=== PATIENT | male | born 1970 | race African-American/Black ===

== ENCOUNTER 2021-05-22 01:22 | Day surgery (SDC) | payer OTHER, BC, SELFPAY ==
[2021-05-12 13:52] VITALS: BMI 34.2
[2021-05-22 06:56] VITALS: BMI 34.5
[2021-05-22 06:57] VITALS: BP 129/78; RESP 18; TEMP 36.4; O2SAT 100
[2021-05-22] MEDS: LACTATED RINGERS 1,000 ML 150 ML IV CONT (07:08)
[2021-05-22 07:11] LABS: Glucose Point of Care 91 mg/dl (65-105)
--- NOTE | 2021-05-22 07:49 | P.PNAN_ITS ---
Anes - Initial Pre Proc Eval Procedure: Operation Date: 05/22/21 08:15 Proposed Procedures p Screening Colonoscopy - Nicho Montero MD Date/Time: 05/22/21 07:49 Surgeon: Nicho Montero MD Pre Op Diagnosis: neoplasm screening Patient Data Age: 50 Gender: M Height: 1.8 m Weight: 112.4 kg Last Vital Signs Temp 36.4 C 05/22/21 06:57 Resp 18 05/22/21 06:57 BP 129/78 05/22/21 06:57 Pulse Ox 100 05/22/21 06:57 Allergies Allergy/AdvReac Type Severity Reaction Status Date / Time No Known Allergies Allergy Verified 05/22/21 06:54 Home Medications Medication Instructions Recorded Confirmed Type amlodipine 10 mg PO DAILY 05/12/21 05/22/21 History losartan-hydrochlorothiazide 1 tablet PO DAILY 05/12/21 05/12/21 History metformin 500 mg PO BID 05/12/21 05/12/21 History Laboratory Tests 05/22/21 07:08 POC Capillary Glucose 91 mg/dl mg/dl (65-105) Patient hx anesthesia problems: none Family hx anesthesia problems: none Results Review: All pre-operative results and documents have been reviewed as part of the pre-operative evaluation. [facility] Past Medical History Medical History Arthritis Diabetes Hx of migraines Hypertension SOHAIL (obstructive sleep apnea) Social History Social History Smoking status: Never smoker Alcohol intake: never Substance use: never Substance use type: does not use Living arrangements: with family Spiritual care concerns: No Anes - Eval Final PreProcedure Day of Procedure 05/22/21 07:49 Patient weight: obese Heart: regular rate and rhythm Lungs: clear to auscultation Airway: Mallampati scale class II Neurological: alert and oriented Last oral intake: >/= 8 hours ASA classification: III Emergent: no Anesthetic plan: proceed Anesthesia type and monitoring: general and standard monitoring Results Review: All pre-operative results and documents have been reviewed as part of the pre-operative evaluation. Informed Consent: The patient's anesthetic plan and its attendant risks and benefits were discussed with the patient/family/POA. Questions were solicited and answers provided to the satisfaction of the patient/family/POA.
--- NOTE | 2021-05-22 08:01 | PM.HPGS ---
History of Present Illness History of Present Illness Consent: Risks, benefits, and alternatives have been discussed and questions answered. Patient agrees to proceed with procedure. Chief complaint: neoplasm screening Narrative: Enrrique Begum is a 50 year old male here for first screening colonoscopy Review of Systems Constitutional: Constitutional: Denies headache(s) and Denies weakness Eyes: Eyes: Denies blurry vision ENT: Reports Normal hearing present, Denies headache(s) and Denies neck pain Cardiovascular: Cardiovascular: Denies chest pain and Denies dyspnea Respiratory: Respiratory: Denies dyspnea Gastrointestinal: Gastrointestinal: Reports no additional gastrointestinal complaints Genitourinary: Genitourinary: Denies dysuria Musculoskeletal: Musculoskeletal: Denies neck pain Integumentary/Breasts: Skin/Breast: Denies dry skin Neurologic: Reports Normal hearing present, Denies headache(s) and Denies weakness Psychiatric: Psychiatric: Denies anxiety Endocrine: Endocrine: Denies change in body appearance Hematologic/Lymphatic: Hematologic/Lymphatic: Denies easy bleeding Allergic/Immunologic: Allergic/Immunologic: Denies urticaria PMF Past Medical History Medical History (Updated 05/22/21 @ 08:02 by Nicho Montero MD) Arthritis Colon cancer screening Diabetes Hx of migraines Hypertension SOHAIL (obstructive sleep apnea) Social History Social History Smoking status: Never smoker Alcohol intake: never Substance use: never Substance use type: does not use Living arrangements: with family Spiritual care concerns: No Meds Home Medications and Allergies Home Medications Medication Instructions Recorded Confirmed Type amlodipine 10 mg PO DAILY 05/12/21 05/22/21 History losartan-hydrochlorothiazide 1 tablet PO DAILY 05/12/21 05/12/21 History metformin 500 mg PO BID 05/12/21 05/12/21 History Allergies Allergy/AdvReac Type Severity Reaction Status Date / Time No Known Allergies Allergy Verified 05/22/21 06:54 Vital Signs Vital Signs - 24 hr 05/22/21 06:57 Temperature 97.6 F Respiratory Rate 18 Blood Pressure 129/78 Pulse Oximetry 100 Exam Const: General: comfortable and no acute distress HENMT: General nose exam: Normal nares present Eyes: General: appearance normal, both eyes and all related structures Neck: Neck: no JVD Resp: Auscultation: clear to auscultation bilaterally Cardio: Rate: regular rate Rhythm: regular rhythm GI: Inspection: non-distended GI Palp: Yes Soft to palpation Skin: General skin exam: normal color Neuro: General: gait normal Speech: normal speech Extrem: General: normal to inspection Psych: Mental Status: mental status grossly normal Assessment and Plan Assessment and plan (1) Colon cancer screening: Code(s): Z12.11 - Encounter for screening for malignant neoplasm of colon Status: Acute Assessment and Plan: colonoscopy
[2021-05-22 08:21] VITALS: BP 139/95; PULSE 64; RESP 22; O2SAT 99
[2021-05-22 08:31] VITALS: BP 121/84; PULSE 63; RESP 19; O2SAT 100
[2021-05-22 08:41] VITALS: BP 129/86; PULSE 67; RESP 15; O2SAT 100
== END 2021-05-22 08:55 | disposition home or self-care (01) ==
PROVIDERS: PCP Family Medicine Adolescent Medicine; Visit Provider Internal Medicine Gastroenterology
PROC: 0DJD8ZZ Inspection of Lower Intestinal Tract, Via Natural or Artificial Opening Endoscopic (ICD-10-PCS; CPT 45378; principal; 2021-05-22 08:15)
DX: Z12.11 Encounter for screening for malignant neoplasm of colon (principal); D12.3 Benign neoplasm of transverse colon; K57.30 Diverticulosis of large intestine without perforation or abscess without bleeding; K64.8 Other hemorrhoids; Z79.84 Long term (current) use of oral hypoglycemic drugs; M19.90 Unspecified osteoarthritis, unspecified site; E11.9 Type 2 diabetes mellitus without complications; I10 Essential (primary) hypertension; G47.33 Obstructive sleep apnea (adult) (pediatric); E66.9 Obesity, unspecified; Z68.34 Body mass index [BMI] 34.0-34.9, adult
CPT/HCPCS: 45385; 82948; 88305; J2001; J2704; J7120

== ENCOUNTER → 2021-10-13 15:46 | Outpatient (CLI) | payer OTHER, BC, SELFPAY ==
--- NOTE | ~2021-10-13 | XR_ITS ---
EXAM: XR pelvis 1-2V DATE: 10/13/2021 16:08 HISTORY: M25.551 - Pain in right hip . COMPARISON: None available. FINDINGS: Normal mineralization. No fracture or dislocation. No lytic or blastic lesion. Mild bilate ral hip joint space narrowing. Enthesopathy of the iliac crests and ischial tuberosities. No erosion or periosteal change. Soft tissues within normal limits. IMPRESSION: Mild bilateral hip osteoarthritis. Reviewed, dictated and finalized at location K.
== END ==
PROVIDERS: PCP Family Medicine Adolescent Medicine; Visit Provider Physician Assistant
DX: M16.0 Bilateral primary osteoarthritis of hip (principal)
CPT/HCPCS: 72170

== ENCOUNTER 2021-12-31 14:54 | Outpatient (CLI) | payer OTHER, BC, SELFPAY ==
--- NOTE | 2021-12-31 15:32 | ECG_ITS ---
Measurements Intervals [place] Rate: 72 P: 30 NV: 187 QRS: -1 QRSD: 89 T: 7 QT: 307 QTc: 336 Interpretive Statements SINUS RHYTHM BASELINE ARTIFACT NONSPECIFIC ST-T-WAVE ABNORMALITY NO PREVIOUS ECG AVAILABLE FOR COMPARISON Electronically Signed On 12-31-2021 17:43:41 CDT by Laurita Yuan M.D.
[2021-12-31 16:04] LABS: Anion Gap 11 mmol/L (8-16); Blood Urea Nitrogen 10 mg/dL (9-20); Calcium 9.1 mg/dL (8.4-10.2); Carbon Dioxide 30 mmol/L (22-30); Chloride 99 mmol/L (98-107); Estimated Glomerular Filt Rate > 60; Glucose 141 mg/dL (65-110); Potassium 3.6 mmol/L (3.4-5.0); Sodium 140 mmol/L (137-145)
== END 2021-12-31 14:55 | disposition home or self-care (01) ==
LOC: ANHSURGERY 15:27
PROVIDERS: Anesthesiology; PCP Family Medicine Adolescent Medicine; Visit Provider Surgery
DX: Z01.818 Encounter for other preprocedural examination (principal); E11.9 Type 2 diabetes mellitus without complications; I10 Essential (primary) hypertension
CPT/HCPCS: 36415; 80048; 86850; 86900; 86901; 93005

== ENCOUNTER 2022-01-05 00:05 | Day surgery (SDC) | payer OTHER, BC, SELFPAY ==
[2021-12-31 08:28] VITALS: BMI 33.2
--- NOTE | 2021-12-31 08:34 | PC.NURSE ---
Report to the Outpatient Waiting Room, entrance under the green pavilion located off [facility], at time ___06:00AM____ on date _[birth year] . OR Time: ___07:30AM___. Time changes happen often and if your time is changed the preop area will call you the afternoon before. - You and your visitor will be asked to self-screen and do not enter if you have any COVID symptoms. - Only one visitor and NO children visitors are allowed at this time. - The patient visitor is requested to leave or wait in car when not with patient due to restrictions. - A mask is required within the hospital. Patients may have clear liquids (water, carbonated beverages, clear teas, apple juice) until 3 hours prior to surgery with a maximum of 20 ounces. - No food from midnight until time of surgery - NOTHING TO DRINK 04:30AM Take the following medications with a SIP of water the morning of surgery: AMLODIPINE Medications to discontinue per physician N/A Date to take last dose N/A Please no make-up, nail chadian, hairspray, perfume, deodorant, or body powder the day of surgery. No jewelry (including any body piercings) or valuables the day of surgery, leave them at home. Please take a shower or bath the night before, or the morning of, surgery with an antibacterial soap. Wear comfortable, loose fitting clothing. - Jewelry must be removed prior to entering the operating room. Rings and piercings that are not removed may be cut off. - The hospital will not accept responsibility for valuables. - Please leave all valuables, including medications, at home the day of surgery. If you are going home after surgery, a licensed driver starting gate must drive you home. - NO public transportation without another adult. - We recommend that an adult stay with you for 24 hours following discharge. - We also recommend that you do not drive, make important decision, drink alcoholic beverages, or take any drugs that were not prescribed by your health care provider for at least 24 hours after your discharge time. Follow any additional instructions given to you from your surgeon. If you or anyone in your household have experienced Covid symptoms in the past week, please notify your surgeon or the nurse liaison at the phone number below for possible testing. Telephone instructions given to ___PATIENT___and asked if any additional questions and then verbalized understanding. Patient advised to call surgeon office or pre surgery nurse liaison [phone] if any additional questions.
[2022-01-05] VITALS (8 sets, daily range): BP systolic 104–135; BP diastolic 69–89; PULSE 53–72; RESP 14–18; TEMP 36.1–37.1; O2SAT 95–100
[2022-01-05] MEDS: LACTATED RINGERS 1,000 ML 30 ML IV CONT ×2 (06:25→09:09)
[2022-01-05] MEDS: KETOROLAC 15 MG/ML VIAL (*BKC) IV PUSH (06:31)
[2022-01-05] MEDS: ACETAMINOPHEN 500 MG TABLET 1000 MG PO (06:31)
[2022-01-05 06:33] LABS: Glucose Point of Care 119 mg/dl (65-105)
--- NOTE | 2022-01-05 06:50 | WPDANESEPPF ---
Anes - Initial Pre Proc Eval Procedure: Operation Date: 01/05/22 07:30 Proposed Procedures p Laparoscopic Umbilical Hernia Repair with Mesh, Davinci Assisted - Casey Day DO Date/Time: 01/05/22 06:50 Surgeon: Casey Day DO Pre Op Diagnosis: umbilical hernia Patient Data Age: 51 Gender: M Height: 1.83 m Weight: 112.3 kg Last Vital Signs Temp 36.1 C L 01/05/22 05:57 Pulse 62 01/05/22 05:57 Resp 18 01/05/22 05:57 BP 125/78 01/05/22 05:57 Pulse Ox 99 01/05/22 05:57 O2 Del Method Room Air 01/05/22 05:57 Allergies Allergy/AdvReac Type Severity Reaction Status Date / Time No Known Allergies Allergy Verified 01/05/22 06:12 Home Medications Medication Instructions Recorded Confirmed Type losartan 100 1 tablet PO DAILY 05/12/21 01/05/22 History mg-hydrochlorothiazide 25 mg tablet amlodipine 10 mg tablet 10 mg PO DAILY #90 tabs 12/03/21 01/05/22 Rx metformin 500 mg tablet See Rx Instructions .Route 12/30/21 01/05/22 Rx .COMPLEX #180 tabs Laboratory Tests 01/05/22 06:27 POC Capillary Glucose 119 mg/dl H mg/dl (65-105) Patient hx anesthesia problems: none Family hx anesthesia problems: none Results Review: All pre-operative results and documents have been reviewed as part of the pre-operative evaluation. [facility] Past Medical History Medical History Arthritis Colon cancer screening Diabetes History of positive PPD Hx of migraines Hypertension SOHAIL (obstructive sleep apnea) Family History Family History Father Hypertension Diabetes mellitus Cancer Mother Hypertension Diabetes mellitus Sibling Hypertension Grandparent Cancer Acute myocardial infarction Cerebrovascular accident Grandparent Cancer Social History Social History Smoking status: Never smoker Second hand tobacco smoke exposure: No Alcohol intake: never Substance use: never Substance use type: does not use Living arrangements: with family Gender identity (if verbalized by the patient): Male Sexual Orientation (if Verbalized by the Patient): Straight or Heterosexual Spiritual care concerns: No Agree to blood products: Yes Anes - Eval Final PreProcedure Day of Procedure 01/05/22 06:50 Patient weight: obese Heart: regular rate and rhythm Lungs: clear to auscultation Airway: Mallampati scale class II Neurological: alert and oriented Last oral intake: >/= 8 hours ASA classification: III Emergent: no Anesthetic plan: proceed Anesthesia type and monitoring: general ETT and standard monitoring Results Review: All pre-operative results and documents have been reviewed as part of the pre-operative evaluation. Informed Consent: The patient's anesthetic plan and its attendant risks and benefits were discussed with the patient/family/POA. Questions were solicited and answers provided to the satisfaction of the patient/family/POA.
--- NOTE | 2022-01-05 07:09 | PM.IMHP ---
H&P: HPI History of Present Illness Date/Time: 01/05/22 07:09 Chief Complaint: umbilical hernia Narrative: 51 yo man presents for umbilical hernia repair. He denies any changes since last seen in office. Review of Systems Review of Systems: All systems reviewed & are unremarkable except as noted in HPI and below Constitutional: Constitutional: Denies chills, Denies fever(s), Denies headache(s) and Denies weight loss Eyes: Eyes: Denies change in vision ENT: Denies dizziness, Denies headache(s), Denies neck mass and Denies throat swelling Cardiovascular: Cardiovascular: Denies chest pain, Denies lightheadedness and Denies dyspnea Respiratory: Respiratory: Denies cough, Denies dyspnea and Denies wheezing Gastrointestinal: Gastrointestinal: Denies abdominal pain, Denies change in bowel habits, Denies nausea and Denies vomiting Genitourinary: Genitourinary: Denies hematuria and Denies dysuria Musculoskeletal: Musculoskeletal: Reports as per HPI Integumentary/Breasts: Skin/Breast: Reports as per HPI Neurologic: Denies dizziness and Denies headache(s) Allergic/Immunologic: Allergic/Immunologic: Denies throat swelling and Denies wheezing PMFSH Past Medical History Medical History Arthritis Colon cancer screening Diabetes History of positive PPD Hx of migraines Hypertension SOHAIL (obstructive sleep apnea) Family History Family History Father Hypertension Diabetes mellitus Cancer Mother Hypertension Diabetes mellitus Sibling Hypertension Grandparent Cancer Acute myocardial infarction Cerebrovascular accident Grandparent Cancer Social History Social History Smoking status: Never smoker Second hand tobacco smoke exposure: No Alcohol intake: never Substance use: never Substance use type: does not use Living arrangements: with family Gender identity (if verbalized by the patient): Male Sexual Orientation (if Verbalized by the Patient): Straight or Heterosexual Spiritual care concerns: No Agree to blood products: Yes Meds Home Medications and Allergies Home Medications Medication Instructions Recorded Confirmed Type losartan 100 1 tablet PO DAILY 05/12/21 01/05/22 History mg-hydrochlorothiazide 25 mg tablet amlodipine 10 mg tablet 10 mg PO DAILY #90 tabs 12/03/21 01/05/22 Rx metformin 500 mg tablet See Rx Instructions .Route 12/30/21 01/05/22 Rx .COMPLEX #180 tabs Allergies Allergy/AdvReac Type Severity Reaction Status Date / Time No Known Allergies Allergy Verified 01/05/22 06:12 Vital Signs Vital Signs - 24 hr 01/05/22 05:57 Temperature 36.1 C L Pulse Rate 62 Respiratory Rate 18 Blood Pressure 125/78 Pulse Oximetry 99 Oxygen Delivery Room Air Exam Const: General: no acute distress and alert Orientation/consciousness: patient oriented x3 HENMT: Head: normocephalic and atraumatic Ears: hearing grossly normal bilaterally Face/Nose/Sinus: Normal nares present Mouth: Yes Normal oral and palatal mucosa present Eyes: Periorbital: periorbital findings normal Sclera: sclerae normal EOM: EOMs intact bilaterally Neck: Neck: normal visual inspection, no lymphadenopathy and trachea midline Chest: Chest palpation & inspection: normal inspection of the chest Resp: Effort & Inspection: normal respiratory effort Auscultation: clear to auscultation bilaterally Cardio: Jugular venous distension: no JVD Rate: regular rate Rhythm: regular rhythm Heart sounds: S1 normal heart sound present and S2 normal heart sound present Peripheral pulses: Peripheral pulses 2+ throughout GI: Inspection: normal to inspection GI Palp: Yes Soft to palpation, No Tenderness to palpation present (GI), No Guarding due to palpation present (GI), Yes Hernia present (2cm umbilical hernia) and No Rebound te
--- NOTE | 2022-01-05 07:11 | WPDHPUPDATE1 ---
History and Physical Update Update Date/Time: 01/05/22 07:11 History and Physical has been reviewed, including an updated exam of the patient. There are NO changes in the patient's condition. Risks, benefits, and alternatives have been discussed and questions answered. Patient agrees to proceed with procedure.
[2022-01-05] MEDS: ceFAZolin 2 GM/D5W 50 ML 2 GM/50 ML BAG IVPB (07:24)
--- NOTE | 2022-01-05 09:03 | W.PM.PROC2 ---
Procedure Note - Detailed Date of Procedure 01/05/22 Pre-op Diagnosis umbilical hernia Post-op Diagnosis Same Procedure Performed Laparoscopic Umbilical Hernia Repair with Mesh, da Pablo assisted Surgeon Casey Day DO Anesthesia General and Local (Exparel) Indications This is a 51-year-old man who presented with a painful bulge at his umbilicus that he noticed about 2-3 months ago. He was experiencing some tenderness well sitting or standing for long periods of times. He was found to have a small reducible umbilical hernia on exam. Discussions were made with the patient about treatment options and decision was made to proceed with robotic assisted laparoscopic umbilical hernia repair with mesh. Findings Laparoscopic umbilical hernia repair was performed. The patient was found to have a 1 cm umbilical hernia containing some omentum. The hernia was reducible. There was minimal surrounding preperitoneal fat. The hernia sac was excised and discarded. A robotic intraperitoneal onlay mesh technique was then used for repair. The fascia was closed using 0 Stratafix running absorbable suture then an [address] mesh was placed and secured to the abdominal wall using 2 0 V lock running absorbable suture. Description of Procedure Procedure as well as risks, benefits, and alternatives were discussed with the patient. Written consent was obtained and placed in chart prior to procedure. Patient was brought back to surgical suite. He was placed supine on operating table. Time-out was done to confirm patient and procedure. He was then intubated by the anesthesia department. A bump was placed under his left hip, and the bed was flexed slightly to extend the space between his costal margin and iliac crest. His abdomen was prepped and draped in sterile fashion using chlorhexidine prep. A 5 millimeter incision was made in the left upper quadrant, and a 5 millimeter Optiview trocar was advanced through the abdominal layers under direct visualization. Once inside the abdominal cavity, carbon dioxide insufflation was used to create a pneumoperitoneum. His abdomen was inspected. An 8 millimeter incision was made in the left lower quadrant, and an 8 millimeter robotic trocar was placed under direct visualization. Another 8 millimeter incision was made in the left lateral abdomen, and an 8 millimeter robotic trocar was placed under direct visualization. Exparel was infiltrated along the lateral abdominal villarreal to perform a transversus abdominis plane block bilaterally. The 5 millimeter port was removed, the incision was extended to 12 millimeters, and a 12 millimeter air seal port was placed under direct visualization. A Damir-Payne cone was also used to place an 0-Vicryl simple interrupted suture at this trocar site. The robotic arms were brought up to the patient's bedside and secured to the ports. The camera and instruments were inserted, and I then moved over to the robotic console and took control of the camera and instruments. After careful thorough inspection of the abdominal cavity, I began my dissection at the hernia. The hernia sac was excised using scissors with electrocautery and the preperitoneal fat was cleared from around the fascia. I then measured the hernia size. The hernia measured 1 cm. The fascia was closed using an 0-Stratafix running suture in a vertical fashion. An [address] was then placed within the abdominal cavity. This was oriented vertically with the mesh centered on the hernia defect. The mesh was then secured circumferentially to the abdominal wall using 2 0 V lock running absorbable suture. The repair was inspected, and one final inspection was made around the abdominal cavity. The robotic instruments were then removed, and the robotic arms were disengaged from the trocars. The ports were then removed under direct visualization, the camera was removed, and the pneumoperitoneum was released. The
[2022-01-05 09:20] LABS: Glucose Point of Care 140 mg/dl (65-105)
[2022-01-05] MEDS: oxyCODONE HCL (*CRX) 5 MG TAB IR PO (10:14)
== END 2022-01-05 11:37 | disposition home or self-care (01) ==
PROVIDERS: PCP Family Medicine Adolescent Medicine; Visit Provider Surgery
PROC: (CPT 49652; principal; 2022-01-05 07:30)
DX: K42.9 Umbilical hernia without obstruction or gangrene (principal); E11.9 Type 2 diabetes mellitus without complications; I10 Essential (primary) hypertension; G47.33 Obstructive sleep apnea (adult) (pediatric); Z79.84 Long term (current) use of oral hypoglycemic drugs; E66.9 Obesity, unspecified; Z68.33 Body mass index [BMI] 33.0-33.9, adult
CPT/HCPCS: 49652; 36415; 80048; 82948; 86850; 86900; 86901; 93005; A9270; C1781; C9290; J0330; J0690; J1100; J1170; J1885; J2250; J2405; J2704; J2710; J3010; J7030; J7120

== ENCOUNTER 2022-11-25 08:01 | Outpatient (CLI) | payer BC, SELFPAY | END 2022-11-25 08:02 | disposition home or self-care (01) | LOC: ANHAUDASC 08:02 | PROVIDERS: PCP Family Medicine Adolescent Medicine; Visit Provider Family Medicine Adolescent Medicine | DX: H91.93 Unspecified hearing loss, bilateral (principal) | CPT/HCPCS: 92552; 92556; 92567 ==

== ENCOUNTER 2023-09-20 10:47 | Outpatient (CLI) | payer OTHER, BC, SELFPAY ==
--- NOTE | ~2023-09-20 | XR_ITS ---
Right Knee Technique: AP, lateral, and sunrise views were obtained. Clinical History: Osteoarthritis Findings: No fracture or dislocation is seen. Osseous alignment is anatomic. There is minimal patella r and intercondylar notch spurring. Soft tissues are unremarkable. No joint effusion is seen. Impression: Minimal degenerative spurring, as above. Reviewed, dictated and finalized at location . Impression: Minimal degenerative spurring, as above.
== END 2023-09-20 10:48 ==
LOC: MICIMG 10:49
PROVIDERS: PCP Family Medicine Adolescent Medicine; Visit Provider Family Medicine Adolescent Medicine
DX: M17.0 Bilateral primary osteoarthritis of knee (principal); M76.891 Other specified enthesopathies of right lower limb, excluding foot
CPT/HCPCS: 73564

== ENCOUNTER 2024-07-13 00:02 | Day surgery (SDC) | payer OTHER, BC, SELFPAY ==
[2024-07-09 13:51] VITALS: BMI 33.3
--- OUTSIDE RECORDS SUMMARY | 2024-07-13 00:05 | XMS_ITS | Clinical Summary ---
Author Organization [facility] Address [address] [place] [id number] Care Team Providers Care C Winforms Developer Name Role Phone Unavailable Primary Care Provider Unavailabl e Social History Tobacco Use Types Packs/Day Years Used Date Smoking Tobacco: Never Assessed Sex and Gender Information Value Date Recorded Sex Assigned at Not on file Legal Sex Male 8:37 AM [employer] Gender Identity Not on file Sexual Orientation Not on file Plan of Treatment Health Maintenance Due Date Last Done Comments Hepatitis C Virus (HCV) Screening 1970 TdaP Immunization 1970 Hepatitis B Immunization (1 of 3 - 19+ 3-dose series) 1989 Colonoscopy 12/27/2015 Colorectal Cancer Screening 12/27/2015 Cologuard 2020 Immunochemical Fecal Occult Blood 2020 Pneumococcal Immunization (5 0+ years) (1 of 1 - PCV) 2020 Zoster Immunization (1 of 2) 2020 Influenza Immunization (#1) 2023 01/06/2020 SARS-COV-2 Immunization ( - 2023-25 season) 2023 Respiratory Syncytial Virus (RSV) Immunization (Adult) (1 - 1-dose 75+ series) 2045 Meningococcal Immunization (ACWY) Aged Out No longer eligible based on patient's age to complete this topic Pneumococcal Immunization Combined Aged Out No longer eligible based on patient's age to complete this topic Rotavirus Immunization Aged Out No lo nger eligible based on patient's age to complete this topic Insurance [employer] on file
[2024-07-13 12:59] VITALS: BP 132/79; PULSE 56; RESP 20; TEMP 36.4; O2SAT 100; BMI 33.7
[2024-07-13] MEDS: LACTATED RINGERS 1,000 ML 150 ML IV CONT (13:02)
[2024-07-13 13:14] LABS: Glucose Point of Care 105 mg/dl (65-105)
--- NOTE | 2024-07-13 13:15 | P.PNAN_ITS ---
Anes - Initial Pre Proc Eval Procedure: Operation Date: 07/13/24 14:00 Proposed Procedures p Colonoscopy - Nicho Montero MD Date/Time: 07/13/24 13:15 Surgeon: Nicho Montero MD Pre Op Diagnosis: Personal history of colon polyps, unspecified Patient Data Age: 53 Gender: M Height: 1.83 m Weight: 112.8 kg Last Vital Signs Temp 36.4 C 07/13/24 12:59 Pulse 56 L 07/13/24 12:59 Resp 20 07/13/24 12:59 BP 132/79 07/13/24 12:59 Pulse Ox 100 07/13/24 12:59 O2 Del Method Room Air 07/13/24 12:59 Allergies Allergy/AdvReac Type Severity Reaction Status Date / Time No Known Allergies Allergy Verified 07/13/24 12:57 Home Medications ?Medication ?Instructions ?Recorded ?Confirmed ?Type losartan 100 1 tablet PO DAILY #90 tabs 09/22/23 07/13/24 Rx mg-hydrochlorothiazide 25 mg tablet amlodipine 10 mg tablet 10 mg PO DAILY #90 tabs 11/07/23 07/13/24 Rx metformin 500 mg tablet See Rx Instructions .Route 12/05/23 07/13/24 Rx .COMPLEX #180 tabs Laboratory Tests 07/13/24 13:11 POC Capillary Glucose 105 mg/dl (65-105) Patient hx anesthesia problems: none Family hx anesthesia problems: none Results Review: All pre-operative results and documents have been reviewed as part of the pre- operative evaluation. [facility] Past Medical History Medical History Umbilical hernia without mention of obstruction or gangrene History of positive PPD Colon cancer screening Arthritis SOHAIL (obstructive sleep apnea) Hypertension Hx of migraines Diabetes Surgical History Surgical History History of umbilical hernia repair (01/05/22) LAP umbilical hernia repair with mesh, da jake assisted on 01/05/22 Family History Family History Father Hypertension Diabetes mellitus Cancer Mother Hypertension Diabetes mellitus Sibling Hypertension Grandparent Cancer Acute myocardial infarction Cerebrovascular accident Grandparent Cancer Social History Social History Smoking status: Never smoker Second hand tobacco smoke exposure: No Alcohol intake: never Substance use: never Substance use type: does not use Do You Feel Safe in your Home?: Yes Lack of Transportation: No Lack of Food: Never True Current Housing: I Have Housing Concerned About Future Housing: No Difficulty Paying Gas/Electric Bills: No Difficulty Paying for Meds: No Currently Unemployed: No Education: Master's Degree or Higher Difficulty w/ Childcare or Family Care: No Living arrangements: with family Occupation/Education: occupation Gender identity (if verbalized by the patient): Male Sexual Orientation (if Verbalized by the Patient): Straight or Heterosexual Spiritual care concerns: No Agree to blood products: Yes Anes - Eval Final PreProcedure Day of Procedure 07/13/24 13:15 Patient weight: obese Heart: regular rate and rhythm Lungs: clear to auscultation Airway: Mallampati scale class III Neurological: alert and oriented Last oral intake: >/= 8 hours ASA classification: III Emergent: no Anesthetic plan: proceed Anesthesia type and monitoring: general GIVS and standard monitoring Results Review: All pre-operative results and documents have been reviewed as part of the pre- operative evaluation. Informed Consent: The patient's anesthetic plan and its attendant risks and benefits were discussed with the patient/family/POA. Questions were solicited and answers provided to the satisfaction of the patient/family/POA.
--- NOTE | 2024-07-13 13:15 | PM.HPGS ---
History of Present Illness History of Present Illness Consent: Risks, benefits, and alternatives have been discussed and questions answered. Patient agrees to proceed with procedure. Chief complaint: Personal history of colon polyps, unspecified Narrative: Enrrique Begum is a 53 year old male with colon polyp in 2021 Review of Systems Review of Systems: All systems reviewed & are unremarkable except as noted in HPI and below PMFSH Past Medical History Medical History (Updated 07/13/24 @ 13:15 by Nicho Montero MD) Adenomatous colon polyp Umbilical hernia without mention of obstruction or gangrene History of positive PPD Colon cancer screening Arthritis SOHAIL (obstructive sleep apnea) Hypertension Hx of migraines Diabetes Surgical History Surgical History History of umbilical hernia repair (01/05/22) LAP umbilical hernia repair with mesh, da jake assisted on 01/05/22 Family History Family History Father Hypertension Diabetes mellitus Cancer Mother Hypertension Diabetes mellitus Sibling Hypertension Grandparent Cancer Acute myocardial infarction Cerebrovascular accident Grandparent Cancer Social History Social History Smoking status: Never smoker Second hand tobacco smoke exposure: No Alcohol intake: never Substance use: never Substance use type: does not use Do You Feel Safe in your Home?: Yes Lack of Transportation: No Lack of Food: Never True Current Housing: I Have Housing Concerned About Future Housing: No Difficulty Paying Gas/Electric Bills: No Difficulty Paying for Meds: No Currently Unemployed: No Education: Master's Degree or Higher Difficulty w/ Childcare or Family Care: No Living arrangements: with family Occupation/Education: occupation Gender identity (if verbalized by the patient): Male Sexual Orientation (if Verbalized by the Patient): Straight or Heterosexual Spiritual care concerns: No Agree to blood products: Yes Meds Home Medications and Allergies Home Medications ?Medication ?Instructions ?Recorded ?Confirmed ?Type losartan 100 1 tablet PO DAILY #90 tabs 09/22/23 07/13/24 Rx mg-hydrochlorothiazide 25 mg tablet amlodipine 10 mg tablet 10 mg PO DAILY #90 tabs 11/07/23 07/13/24 Rx metformin 500 mg tablet See Rx Instructions .Route 12/05/23 07/13/24 Rx .COMPLEX #180 tabs Allergies Allergy/AdvReac Type Severity Reaction Status Date / Time No Known Allergies Allergy Verified 07/13/24 12:57 Vital Signs Vital Signs - 24 hr 07/13/24 12:59 Temperature 97.6 F Pulse Rate 56 L Respiratory Rate 20 Blood Pressure 132/79 Pulse Oximetry 100 Oxygen Delivery Room Air Exam Const: General: comfortable and no acute distress HENMT: Face/Nose/Sinus: Normal nares present Eyes: General: appearance normal, both eyes and all related structures Neck: Neck: no JVD Resp: Auscultation: clear to auscultation bilaterally Cardio: Rate: regular rate Rhythm: regular rhythm GI: Inspection: non-distended GI Palp: Yes Soft to palpation Skin: General skin exam: normal color Neuro: General: gait normal Speech: normal speech Extrem: General: normal to inspection Psych: Mental Status: mental status grossly normal Assessment and Plan Assessment and plan (1) Adenomatous colon polyp: Code(s): D12.6 - Benign neoplasm of colon, unspecified Status: Acute Assessment and Plan: colonoscopy
[2024-07-13 13:28] VITALS: BP 120/83; PULSE 76; RESP 15; O2SAT 97
[2024-07-13 13:38] VITALS: BP 122/75; PULSE 74; RESP 16; O2SAT 98
[2024-07-13 13:48] VITALS: BP 114/89; PULSE 73; RESP 19; O2SAT 100
== END 2024-07-13 13:56 | disposition home or self-care (01) ==
PROVIDERS: PCP Family Medicine Adolescent Medicine; Referring Provider Internal Medicine Gastroenterology; Visit Provider Internal Medicine Gastroenterology
PROC: 0DJD8ZZ Inspection of Lower Intestinal Tract, Via Natural or Artificial Opening Endoscopic (ICD-10-PCS; CPT 45378; principal; 2024-07-13 14:00)
DX: Z12.11 Encounter for screening for malignant neoplasm of colon (principal); K57.30 Diverticulosis of large intestine without perforation or abscess without bleeding; Z86.0100 Personal history of colon polyps, unspecified; E11.9 Type 2 diabetes mellitus without complications; E66.9 Obesity, unspecified; Z68.33 Body mass index [BMI] 33.0-33.9, adult
CPT/HCPCS: 45378; 82948; J2704; J7120